=== PATIENT | male | born 1980 | race Caucasian/White ===

== ENCOUNTER 2021-07-11 17:30 | Outpatient (CLI) | payer MEDICARE, MEDICAID ==
[~2021-07-11 17:30] MED LIST: DIVA-112 PO; RISP2TAB45 PO; SERT-158 PO
[2021-07-11] MEDS ORDERED: NICOTINE 21 MG/24 HOUR PATCH TD ONE ×2 (17:54→18:30)
[2021-07-11 18:15] VITALS: BP 149/90
[2021-07-11 18:16] VITALS: BP 149/90
[2021-07-11] MEDS ORDERED: DiphenhydrAMINE HCL 50 MG/ML VIAL IM PRN (18:30)
[2021-07-11] MEDS ORDERED: LORazepam 2 MG/ML VIAL IM PRN (18:30)
[2021-07-11] MEDS ORDERED: HALOPERIDOL LACTATE 5 MG/ML VIAL IM PRN (18:30)
[2021-07-11 18:41] LABS: GLUCOMETER DEV NAME(LOC) POC.BV
[2021-07-11] MEDS ORDERED: GABAPENTIN 300 MG CAPSULE PO SCH (21:00)
[2021-07-11] MEDS ORDERED: BusPIRone HCL 10 MG TABLET PO SCH (21:00)
[2021-07-11] MEDS ORDERED: DIVALPROEX SODIUM 250 MG DR TABLET PO SCH (21:00)
[2021-07-11] MEDS ORDERED: OLANZapine 5 MG RAPDIS TABLET PO SCH (21:00)
[2021-07-12] MEDS ORDERED: RisperiDONE 3 MG TABLET PO SCH (09:00)
[2021-07-12] MEDS ORDERED: PARO10TA71 PO (10:35)
[2021-07-12] MEDS ORDERED: GABA-1181 PO (10:35)
[2021-07-12] MEDS ORDERED: BUSP10TA23 PO (10:35)
[2021-07-12] MEDS ORDERED: RISP3TAB35 PO (10:35)
== END 2021-07-11 23:00 | disposition home or self-care (01) ==
LOC: CSU 17:30
PROVIDERS: ATTEND Psychiatry & Neurology Psychiatry
DX: F39 Unspecified mood [affective] disorder (principal); F29 Unspecified psychosis not due to a substance or known physiological condition; F17.200 Nicotine dependence, unspecified, uncomplicated
CPT/HCPCS: 87426; 90792; J1200; J1630; J2060

== ENCOUNTER 2021-07-11 20:09 | Inpatient (IN) | payer MEDICARE, MEDICAID ==
[~2021-07-11] VITALS: Ht 182.9 cm; Wt 102.1 kg
[2021-07-12 00:15] VITALS: BP 118/73
[2021-07-12] MEDS ORDERED: INFLUENZA VIRUS VACCINE QVS 2021-22 (6MO+)/PF 60 MCG/0.5 ML SYRINGE IM. ONE (00:15)
[2021-07-12] MEDS: LORazepam 2 MG TABLET PO PRN ×3 (00:16→16:01)
[2021-07-12] MEDS: HALOPERIDOL 5 MG TABLET PO PRN ×2 (00:16→16:01)
[2021-07-12 07:14] LABS: BASOPHILS % (AUTO) 1.3 % (0.0-2.0); EOSINOPHILS % (AUTO) 1.7 % (1.0-6.0); HEMATOCRIT 36.7 % (41-53); HEMOGLOBIN 12.2 g/dL (13.5-17.5); LYMPHOCYTES # (AUTO) 2.8 K/uL (1.0-4.8); LYMPHOCYTES % (AUTO) 35.4 % (22.0-44.0); MEAN CORPUSCULAR HEMOGLOBIN 27.1 pg (26.0-34.0); MEAN CORPUSCULAR HGB CONC 33.2 G/dL (31.0-37.0); MEAN CORPUSCULAR VOLUME 82 fL (80-100); MONOCYTES # (AUTO) 0.6 K/uL (0.1-1.0); MONOCYTES % (AUTO) 7.4 % (2.0-9.0); NEUTROPHILS # (AUTO) 4.3 K/uL (1.8-7.7); NEUTROPHILS % (AUTO) 54.2 % (40.0-70.0); PLATELET COUNT (AUTO) 268 K/uL (150-450); RED CELL DISTRIBUTION WIDTH 17.7 % (11.5-14.5)
[2021-07-12 07:27] LABS: HEMOGLOBIN A1C 5.5 % (3.8-5.6)
[2021-07-12 07:36] LABS: ALANINE AMINOTRANSFERASE 23 U/L (12-78); ALBUMIN 3.3 g/dL (3.4-5.0); ALKALINE PHOSPHATASE 94 U/L (46-116); ANION GAP 8 mmol/L (8-16); ASPARTATE AMINOTRANSFERASE 16 U/L (15-37); BILIRUBIN,TOTAL 0.2 mg/dL (0.1-1.0); CALCIUM, TOTAL 8.8 mg/dL (8.8-10.5); CARBON DIOXIDE 28 mmol/L (22-29); CHLORIDE 106 mmol/L (98-107); CHOL/HDL RATIO 6.6 (4.2-7.3); CHOLESTEROL 212 mg/dL (131-200); CREATININE 0.82 mg/dL (0.60-1.30); FREE T4 (FREE THYROXINE) 0.92 ng/dL (0.76-1.46); GLOMERULAR FILTR. RATE CALC > 60 mL/min (>60); GLUCOSE,RANDOM 92 mg/dL (70-110); HDL CHOLESTEROL 32 mg/dL (40-60); LDL CHOL (CALC.) 103 mg/dL (0-130); POTASSIUM 3.8 mmol/L (3.5-5.1); SODIUM SERUM 142 mmol/L (136-145); THYROID STIMULATING HORMONE 0.28 uIU/mL (0.36-3.74); TOTAL PROTEIN, SERUM 6.6 g/dL (6.4-8.2); TRIGLYCERIDES 384 mg/dL (15-150); UREA NITROGEN, BLOOD 7 mg/dL (7-18)
[2021-07-12 08:13] VITALS: BP 121/75
[2021-07-12] MEDS ORDERED: GABA-1181 PO (10:35)
[2021-07-12] MEDS ORDERED: BUSP10TA23 PO (10:35)
[2021-07-12] MEDS ORDERED: PARO10TA71 PO (10:35)
[2021-07-12] MEDS ORDERED: RISP3TAB35 PO (10:35)
[2021-07-12] MEDS: GABAPENTIN 300 MG CAPSULE PO SCH ×3 (10:55→20:50)
[2021-07-12] MEDS: RisperiDONE 2 MG TABLET PO SCH ×2 (10:55→20:50)
[2021-07-12] MEDS: PARoxetine HCL 20 MG TABLET PO SCH (10:55)
[2021-07-12] MEDS: BusPIRone HCL 10 MG TABLET PO SCH ×2 (11:08→20:50)
[2021-07-12] MEDS: NICOTINE 14 MG/24 HOUR PATCH TD PRN (11:08)
[2021-07-12] MEDS ORDERED: HALOPERIDOL LACTATE 5 MG/ML VIAL IM ONE (12:00)
[2021-07-12] MEDS ORDERED: DiphenhydrAMINE HCL 50 MG/ML VIAL IM ONE (12:00)
[2021-07-12] MEDS ORDERED: LORazepam 2 MG/ML VIAL IM ONE (12:00)
[2021-07-12] MEDS ORDERED: NICOTINE 14 MG/24 HOUR PATCH TD PRN (15:15)
[2021-07-12] MEDS ORDERED: ACETAMINOPHEN 325 MG TABLET PO PRN (15:15)
[2021-07-12] MEDS ORDERED: ONDANSETRON HCL 4 MG TABLET PO PRN (15:15)
[2021-07-12] MEDS ORDERED: GuaiFENesin/D-METHORPHAN [SUGAR-FREE] 200-20MG/10 ML SYRUP UDCUP PO PRN (15:15)
[2021-07-12] MEDS ORDERED: CloNIDine HCL 0.1 MG TABLET PO PRN (15:15)
[2021-07-12] MEDS ORDERED: ALBUTEROL SULFATE HFA 90 MCG/PUFF 8 GM INHALER IH PRN (15:15)
[2021-07-12] MEDS ORDERED: MAGNESIUM HYDROXIDE SUSPENSION 30 ML UDCUP PO PRN (15:15)
[2021-07-12] MEDS ORDERED: DOCUSATE SODIUM 100 MG CAPSULE PO PRN (15:15)
[2021-07-12] MEDS ORDERED: MAG HYDROX/AL HYDROX/SIMETH ES 30 ML SUSPENSION UDCUP PO PRN (15:15)
[2021-07-12] MEDS ORDERED: LOPERAMIDE HCL 2 MG CAPSULE PO PRN (15:15)
[2021-07-12] MEDS ORDERED: PETROLATUM,WHITE 28 GM JELLY TP PRN (15:15)
[2021-07-12 16:10] VITALS: BP 121/75
[2021-07-13 02:13] VITALS: BP 147/80
[2021-07-13] MEDS: HALOPERIDOL 5 MG TABLET PO PRN ×2 (07:43→16:56)
[2021-07-13] MEDS: NICOTINE 14 MG/24 HOUR PATCH TD PRN (07:51)
[2021-07-13] MEDS: LORazepam 2 MG TABLET PO PRN ×2 (07:59→16:56)
[2021-07-13] MEDS: PARoxetine HCL 20 MG TABLET PO SCH (08:16)
[2021-07-13] MEDS: GABAPENTIN 300 MG CAPSULE PO SCH ×3 (08:16→20:05)
[2021-07-13] MEDS: BusPIRone HCL 10 MG TABLET PO SCH ×2 (08:24→20:05)
[2021-07-13 08:46] VITALS: BP 121/74
[2021-07-13] MEDS: RisperiDONE 2 MG TABLET PO SCH ×2 (09:00→20:05)
[2021-07-13 10:16] LABS: GLUCOMETER DEV NAME(LOC) POC.BV
[2021-07-13] MEDS ORDERED: HALOPERIDOL LACTATE 5 MG/ML VIAL ONE (11:15)
[2021-07-13] MEDS ORDERED: LORazepam 2 MG/ML VIAL ONE (11:16)
[2021-07-13] MEDS ORDERED: DiphenhydrAMINE HCL 50 MG/ML VIAL ONE (11:16)
[2021-07-13] MEDS ORDERED: LORazepam 2 MG/ML VIAL IM ONE (11:30)
[2021-07-13] MEDS ORDERED: DiphenhydrAMINE HCL 50 MG/ML VIAL IM ONE (11:30)
[2021-07-13] MEDS ORDERED: HALOPERIDOL LACTATE 5 MG/ML VIAL IM ONE (11:30)
[2021-07-13 17:07] VITALS: BP 137/95
[2021-07-13] MEDS: IBUPROFEN 400 MG TABLET PO PRN (17:30)
[2021-07-13] MEDS: ZOLPIDEM TARTRATE 10 MG TABLET PO PRN (20:05)
[2021-07-14 01:12] VITALS: BP 128/82
[2021-07-14] MEDS: RisperiDONE 2 MG TABLET PO SCH ×2 (08:08→20:06)
[2021-07-14] MEDS: LORazepam 2 MG TABLET PO PRN ×3 (08:08→17:46)
[2021-07-14] MEDS: BusPIRone HCL 10 MG TABLET PO SCH ×2 (08:08→20:06)
[2021-07-14] MEDS: GABAPENTIN 300 MG CAPSULE PO SCH ×3 (08:09→20:06)
[2021-07-14] MEDS: PARoxetine HCL 20 MG TABLET PO SCH (08:09)
[2021-07-14 08:19] VITALS: BP 138/87
[2021-07-14] MEDS: NICOTINE 14 MG/24 HOUR PATCH TD PRN (08:43)
[2021-07-14] MEDS: HALOPERIDOL 5 MG TABLET PO PRN ×2 (09:29→14:13)
[2021-07-14] MEDS: IBUPROFEN 400 MG TABLET PO PRN (16:08)
[2021-07-14 16:16] VITALS: BP 123/78
[2021-07-14] MEDS: ZOLPIDEM TARTRATE 10 MG TABLET PO PRN (20:06)
[2021-07-15 03:34] VITALS: BP 129/73
[2021-07-15] MEDS: BusPIRone HCL 10 MG TABLET PO SCH (08:02)
[2021-07-15] MEDS: PARoxetine HCL 20 MG TABLET PO SCH (08:02)
[2021-07-15] MEDS: GABAPENTIN 300 MG CAPSULE PO SCH (08:02)
[2021-07-15] MEDS: RisperiDONE 2 MG TABLET PO SCH (08:02)
[2021-07-15] MEDS: LORazepam 2 MG TABLET PO PRN (08:02)
[2021-07-15 08:26] VITALS: BP 127/80
[2021-07-15] MEDS: NICOTINE 14 MG/24 HOUR PATCH TD PRN (08:48)
[2021-07-15] MEDS ORDERED: GABA-1181 PO (09:31)
[2021-07-15] MEDS ORDERED: RISP2TAB45 PO (09:31)
[2021-07-15] MEDS ORDERED: BUSP10TA23 PO (09:31)
[2021-07-15] MEDS ORDERED: PARO10TA71 PO (09:31)
== END 2021-07-15 12:00 | disposition home or self-care (01) | DRG 885 ==
LOC: B2X 23:27 → B3A 07-13 12:00
PROVIDERS: ADMIT Psychiatry & Neurology Psychiatry; ATTEND Psychiatry & Neurology Child & Adolescent Psychiatry
DX: F25.1 Schizoaffective disorder, depressive type (principal); R45.851 Suicidal ideations; F10.10 Alcohol abuse, uncomplicated; D64.9 Anemia, unspecified; F19.10 Other psychoactive substance abuse, uncomplicated; Y90.9 Presence of alcohol in blood, level not specified; I10 Essential (primary) hypertension; Z20.822 Contact with and (suspected) exposure to COVID-19; Z71.41 Alcohol abuse counseling and surveillance of alcoholic; Z79.899 Other long term (current) drug therapy; Z59.00 Homelessness unspecified
CPT/HCPCS: 80053; 80061; 83036; 84439; 84443; 85025; 90686; J1200; J1630; J2060

== ENCOUNTER 2021-07-22 09:55 | Inpatient (IN) | payer MEDICARE, MEDICAID ==
[~2021-07-22] VITALS: Ht 182.9 cm; Wt 103.0 kg
[~2021-07-22 09:55] MED LIST changes: +BUSP10TA23 PO; -DIVA-112 PO; +GABA-1181 PO; +PARO10TA71 PO; -SERT-158 PO
[2021-07-22 10:46] LABS: GLUCOMETER DEV NAME(LOC) POC.BV
[2021-07-22] MEDS: LORazepam 2 MG TABLET PO PRN (11:50)
[2021-07-22] MEDS: HALOPERIDOL 5 MG TABLET PO PRN (11:50)
[2021-07-22 16:21] VITALS: BP 115/68
[2021-07-23 01:53] VITALS: BP 119/72
[2021-07-23] MEDS: LORazepam 2 MG TABLET PO PRN ×2 (05:24→09:35)
[2021-07-23] MEDS: HALOPERIDOL 5 MG TABLET PO PRN ×2 (05:24→09:35)
[2021-07-23 07:19] LABS: BASOPHILS % (AUTO) 1.2 % (0.0-2.0); EOSINOPHILS % (AUTO) 1.5 % (1.0-6.0); HEMATOCRIT 38.5 % (41-53); HEMOGLOBIN 12.9 g/dL (13.5-17.5); LYMPHOCYTES # (AUTO) 1.8 K/uL (1.0-4.8); LYMPHOCYTES % (AUTO) 31.1 % (22.0-44.0); MEAN CORPUSCULAR HEMOGLOBIN 27.2 pg (26.0-34.0); MEAN CORPUSCULAR HGB CONC 33.7 G/dL (31.0-37.0); MEAN CORPUSCULAR VOLUME 81 fL (80-100); MONOCYTES # (AUTO) 0.4 K/uL (0.1-1.0); MONOCYTES % (AUTO) 7.7 % (2.0-9.0); NEUTROPHILS # (AUTO) 3.4 K/uL (1.8-7.7); NEUTROPHILS % (AUTO) 58.5 % (40.0-70.0); PLATELET COUNT (AUTO) 308 K/uL (150-450); RED BLOOD CELL COUNT(AUTO) 4.76 MIL/uL (4.50-5.90); RED CELL DISTRIBUTION WIDTH 17.4 % (11.5-14.5)
[2021-07-23 07:31] LABS: HEMOGLOBIN A1C 5.4 % (3.8-5.6)
[2021-07-23 07:57] LABS: ALANINE AMINOTRANSFERASE 29 U/L (12-78); ALBUMIN 3.6 g/dL (3.4-5.0); ALKALINE PHOSPHATASE 112 U/L (46-116); ANION GAP 8 mmol/L (8-16); ASPARTATE AMINOTRANSFERASE 19 U/L (15-37); BILIRUBIN,TOTAL 0.5 mg/dL (0.1-1.0); CALCIUM, TOTAL 8.9 mg/dL (8.8-10.5); CARBON DIOXIDE 27 mmol/L (22-29); CHLORIDE 106 mmol/L (98-107); CHOL/HDL RATIO 4.7 (4.2-7.3); CHOLESTEROL 206 mg/dL (131-200); CREATININE 0.83 mg/dL (0.60-1.30); FREE T4 (FREE THYROXINE) 1.14 ng/dL (0.76-1.46); GLOMERULAR FILTR. RATE CALC > 60 mL/min (>60); GLUCOSE,RANDOM 92 mg/dL (70-110); HCG,QUANTITATIVE < 1 mIU/mL (0-6); HDL CHOLESTEROL 44 mg/dL (40-60); LDL CHOL (CALC.) 134 mg/dL (0-130); POTASSIUM 3.4 mmol/L (3.5-5.1); SODIUM SERUM 141 mmol/L (136-145); THYROID STIMULATING HORMONE 0.83 uIU/mL (0.36-3.74); TOTAL PROTEIN, SERUM 7.2 g/dL (6.4-8.2); TRIGLYCERIDES 140 mg/dL (15-150); UREA NITROGEN, BLOOD 8 mg/dL (7-18)
[2021-07-23] MEDS ORDERED: NICOTINE 21 MG/24 HOUR PATCH TD PRN (09:45)
[2021-07-23 10:57] VITALS: BP 116/72
[2021-07-23] MEDS: RisperiDONE 2 MG TABLET PO SCH ×2 (12:29→20:44)
[2021-07-23] MEDS: PARoxetine HCL 20 MG TABLET PO SCH (12:29)
[2021-07-23] MEDS ORDERED: ALBUTEROL SULFATE HFA 90 MCG/PUFF 8 GM INHALER IH PRN (14:45)
[2021-07-23] MEDS ORDERED: LOPERAMIDE HCL 2 MG CAPSULE PO PRN (14:45)
[2021-07-23] MEDS ORDERED: DOCUSATE SODIUM 100 MG CAPSULE PO PRN (14:45)
[2021-07-23] MEDS ORDERED: MAG HYDROX/AL HYDROX/SIMETH ES 30 ML SUSPENSION UDCUP PO PRN (14:45)
[2021-07-23] MEDS ORDERED: GuaiFENesin/D-METHORPHAN [SUGAR-FREE] 200-20MG/10 ML SYRUP UDCUP PO PRN (14:45)
[2021-07-23] MEDS ORDERED: MAGNESIUM HYDROXIDE SUSPENSION 30 ML UDCUP PO PRN (14:45)
[2021-07-23] MEDS ORDERED: PETROLATUM,WHITE 28 GM JELLY TP PRN (14:45)
[2021-07-23] MEDS ORDERED: CloNIDine HCL 0.1 MG TABLET PO PRN (14:45)
[2021-07-23] MEDS ORDERED: ONDANSETRON HCL 4 MG TABLET PO PRN (14:45)
[2021-07-23 16:15] VITALS: BP 140/82
[2021-07-23] MEDS: BusPIRone HCL 10 MG TABLET PO SCH (16:27)
[2021-07-24 06:17] VITALS: BP 142/71
[2021-07-24] MEDS: LORazepam 2 MG TABLET PO PRN ×4 (06:28→16:54)
[2021-07-24] MEDS: HALOPERIDOL 5 MG TABLET PO PRN ×3 (06:28→16:54)
[2021-07-24 07:25] LABS: APPEARANCE,URINE CLEAR (CLEAR); BILIRUBIN,URINE NEGATIVE (NEGATIVE); GLUCOSE, URINE (UA) NEGATIVE (NEGATIVE); KETONES,URINE TRACE mg/dL (NEGATIVE); LEUKOCYTE ESTERASE ,URINE NEGATIVE (NEGATIVE); NITRATE,URINE NEGATIVE (NEGATIVE); OCCULT BLOOD,URINE NEGATIVE (NEGATIVE); PH,URINE 6.5 (5.0-8.0); PROTEIN,URINE NEGATIVE (NEGATIVE); UROBILINOGEN,URINE 0.2 mg/dL (<=1.0)
[2021-07-24 07:35] LABS: AMPHET/METH SCREEN,URINE NEGATIVE (NEGATIVE); BARBITURATE SCREEN, URINE NEGATIVE (NEGATIVE); BENZODIAZEPINES SCREEN,URINE POSITIVE (NEGATIVE); CANNABINOID SCREEN,URINE POSITIVE (NEGATIVE); COCAINE SCREEN,URINE NEGATIVE (NEGATIVE); METHADONE SCREEN, URINE NEGATIVE (NEGATIVE); OPIATE SCREEN,URINE NEGATIVE (NEGATIVE)
[2021-07-24 07:42] LABS: PHENCYCLIDINE SCREEN,URINE NEGATIVE (NEGATIVE)
[2021-07-24] MEDS: PARoxetine HCL 20 MG TABLET PO SCH (08:01)
[2021-07-24] MEDS: BusPIRone HCL 10 MG TABLET PO SCH ×2 (08:01→16:54)
[2021-07-24] MEDS: RisperiDONE 2 MG TABLET PO SCH ×2 (08:01→20:31)
[2021-07-24] MEDS: NICOTINE 14 MG/24 HOUR PATCH TD PRN (08:03)
[2021-07-24 09:29] VITALS: BP 130/72
[2021-07-24] MEDS ORDERED: DiphenhydrAMINE HCL 50 MG/ML VIAL ONE (11:08)
[2021-07-24] MEDS ORDERED: HALOPERIDOL LACTATE 5 MG/ML VIAL ONE (11:08)
[2021-07-24] MEDS ORDERED: LORazepam 2 MG/ML VIAL ONE (11:08)
[2021-07-24] MEDS ORDERED: LORazepam 2 MG/ML VIAL IM ONE (11:30)
[2021-07-24] MEDS ORDERED: HALOPERIDOL LACTATE 5 MG/ML VIAL IM ONE (11:30)
[2021-07-24] MEDS ORDERED: DiphenhydrAMINE HCL 50 MG/ML VIAL IM ONE (11:30)
[2021-07-24 16:05] VITALS: BP 130/74
[2021-07-25] MEDS: HALOPERIDOL 5 MG TABLET PO PRN ×3 (06:02→20:11)
[2021-07-25] MEDS: LORazepam 2 MG TABLET PO PRN ×3 (06:02→18:26)
[2021-07-25] MEDS: NICOTINE 14 MG/24 HOUR PATCH TD PRN (08:04)
[2021-07-25] MEDS: PARoxetine HCL 20 MG TABLET PO SCH (08:05)
[2021-07-25] MEDS: RisperiDONE 2 MG TABLET PO SCH ×2 (08:05→20:10)
[2021-07-25] MEDS: BusPIRone HCL 10 MG TABLET PO SCH ×2 (08:05→20:11)
[2021-07-25] MEDS ORDERED: HALOPERIDOL LACTATE 5 MG/ML VIAL IM ONE (09:30)
[2021-07-25] MEDS ORDERED: DiphenhydrAMINE HCL 50 MG/ML VIAL IM ONE (09:30)
[2021-07-25] MEDS ORDERED: LORazepam 2 MG/ML VIAL IM ONE (09:30)
[2021-07-25] MEDS: ACETAMINOPHEN 325 MG TABLET PO PRN (10:05)
[2021-07-25 10:07] VITALS: BP 133/76
[2021-07-25 16:15] VITALS: BP 133/76
[2021-07-25] MEDS: ZOLPIDEM TARTRATE 10 MG TABLET PO PRN (20:11)
[2021-07-26 04:25] VITALS: BP 133/74
[2021-07-26] MEDS: HALOPERIDOL 5 MG TABLET PO PRN ×4 (06:05→18:18)
[2021-07-26] MEDS: LORazepam 2 MG TABLET PO PRN ×4 (06:06→18:18)
[2021-07-26 08:00] VITALS: BP 126/74
[2021-07-26] MEDS: BusPIRone HCL 10 MG TABLET PO SCH ×2 (08:08→20:44)
[2021-07-26] MEDS: NICOTINE 14 MG/24 HOUR PATCH TD PRN (08:08)
[2021-07-26] MEDS: RisperiDONE 2 MG TABLET PO SCH ×2 (08:08→20:44)
[2021-07-26] MEDS: PARoxetine HCL 20 MG TABLET PO SCH (08:08)
[2021-07-26 11:31] VITALS: BP 126/74
[2021-07-26] MEDS: IBUPROFEN 400 MG TABLET PO PRN (13:18)
[2021-07-26] MEDS: ACETAMINOPHEN 325 MG TABLET PO PRN (15:19)
[2021-07-26 16:28] VITALS: BP 140/99
[2021-07-26] MEDS: ZOLPIDEM TARTRATE 10 MG TABLET PO PRN (20:45)
[2021-07-27 00:12] VITALS: BP_SYST 130; BP_SYST 138; BP_DIAS 81; BP_DIAS 85
[2021-07-27] MEDS: LORazepam 2 MG TABLET PO PRN ×3 (05:34→14:00)
[2021-07-27] MEDS: HALOPERIDOL 5 MG TABLET PO PRN ×3 (05:34→14:00)
[2021-07-27] MEDS: IBUPROFEN 400 MG TABLET PO PRN ×2 (06:29→15:54)
[2021-07-27] MEDS: PARoxetine HCL 20 MG TABLET PO SCH (09:40)
[2021-07-27] MEDS: RisperiDONE 2 MG TABLET PO SCH ×2 (09:40→20:22)
[2021-07-27] MEDS: BusPIRone HCL 10 MG TABLET PO SCH ×2 (09:40→20:22)
[2021-07-27] MEDS: NICOTINE 14 MG/24 HOUR PATCH TD PRN (10:31)
[2021-07-27 16:06] VITALS: BP 140/87
[2021-07-28 02:24] VITALS: BP 133/82
[2021-07-28 03:21] VITALS: BP 130/78
[2021-07-28] MEDS: HALOPERIDOL 5 MG TABLET PO PRN ×3 (06:04→16:22)
[2021-07-28] MEDS: LORazepam 2 MG TABLET PO PRN ×3 (06:04→16:22)
[2021-07-28] MEDS: IBUPROFEN 400 MG TABLET PO PRN ×2 (06:44→15:51)
[2021-07-28] MEDS: RisperiDONE 2 MG TABLET PO SCH ×2 (08:09→20:13)
[2021-07-28] MEDS: PARoxetine HCL 20 MG TABLET PO SCH (08:09)
[2021-07-28] MEDS: BusPIRone HCL 10 MG TABLET PO SCH ×2 (08:09→20:13)
[2021-07-28] MEDS: NICOTINE 14 MG/24 HOUR PATCH TD PRN (08:13)
[2021-07-28 08:29] VITALS: BP 135/77
[2021-07-28 16:11] VITALS: BP 115/60
[2021-07-29 05:23] VITALS: BP 132/84
[2021-07-29] MEDS: HALOPERIDOL 5 MG TABLET PO PRN (05:26)
[2021-07-29] MEDS: LORazepam 2 MG TABLET PO PRN (05:26)
[2021-07-29] MEDS: IBUPROFEN 400 MG TABLET PO PRN (05:31)
[2021-07-29] MEDS: RisperiDONE 2 MG TABLET PO SCH (08:02)
[2021-07-29] MEDS: BusPIRone HCL 10 MG TABLET PO SCH (08:02)
[2021-07-29] MEDS: PARoxetine HCL 20 MG TABLET PO SCH (08:02)
[2021-07-29 08:22] VITALS: BP 118/69
[2021-07-29] MEDS: NICOTINE 14 MG/24 HOUR PATCH TD PRN (08:22)
== END 2021-07-29 14:13 | disposition left against medical advice (07) | DRG 885 ==
LOC: B3A 11:00
PROVIDERS: ADMIT Psychiatry & Neurology Psychiatry; ATTEND Psychiatry & Neurology Psychiatry
DX: F25.0 Schizoaffective disorder, bipolar type (principal); R45.851 Suicidal ideations; F25.1 Schizoaffective disorder, depressive type; I10 Essential (primary) hypertension; F12.10 Cannabis abuse, uncomplicated; F10.10 Alcohol abuse, uncomplicated; E87.6 Hypokalemia; D64.9 Anemia, unspecified; Y90.9 Presence of alcohol in blood, level not specified; Z53.29 Procedure and treatment not carried out because of patient's decision for other reasons; Z20.822 Contact with and (suspected) exposure to COVID-19; F41.9 Anxiety disorder, unspecified; Z59.00 Homelessness unspecified; Z79.899 Other long term (current) drug therapy; Z91.19 Patient's noncompliance with other medical treatment and regimen; Z71.51 Drug abuse counseling and surveillance of drug abuser; Z71.41 Alcohol abuse counseling and surveillance of alcoholic
CPT/HCPCS: 80053; 80061; 80307; 81003; 83036; 84132; 84436; 84439; 84443; 84702; 85025; 86592; 87081; G0480; J1200; J1630; J2060; Q0162